=== PATIENT | female | born 1965 | race Caucasian/White ===

== ENCOUNTER 2024-04-15 17:06 | Inpatient (IN) | payer MEDICARE, OTHER ==
[~2024-04-15] VITALS: Ht 157.5 cm; Wt 86.0 kg
[2024-04-15 18:09] LABS: DIFFERENTIAL COMMENT 0; EOSINOPHILS % 1.4 % (0.0-5.0); HEMOGLOBIN. 8.7 g/dL (12.0-16.0); LYMPHOCYTES % 14.1 % (20.0-50.0); MEAN CORPUSCULAR HGB CONC 33.6 g/dL (31.0-37.0); MEAN CORPUSCULAR VOLUME 104.1 fL (81.0-99.0); MEAN PLATELET VOLUME 8.4 fl (7.4-10.4); MONOCYTES % 10.3 % (2.0-8.0); NEUTROPHILS % 73.2 % (40.0-76.0); PLATELET 148 x1000/uL (130-400); RED CELL DISTRIBUTION WIDTH 17.3 % (11.6-14.6); WHITE BLOOD COUNT 6.2 x1000/uL (4.5-11.0)
[2024-04-15 18:17] LABS: INR 1.3; PARTIAL THROMBOPLASTIN TIME 28.4 sec (23.4-31.0)
[2024-04-15 18:40] LABS: CHLORIDE 106 mEq/L (98-107); POTASSIUM 3.9 mEq/L (3.5-5.1); SODIUM 136 mEq/L (136-145)
[2024-04-15 18:41] LABS: CARBON DIOXIDE 23 mEq/L (21-32)
[2024-04-15 18:46] LABS: CREATININE 0.9 mg/dL (0.6-1.0); GLUCOSE 164 mg/dL (70-105); UREA NITROGEN BLOOD 16 mg/dL (9-23)
[2024-04-15 18:48] LABS: ALANINE AMINOTRANSFERASE 30 IU/L (10-49); ALBUMIN 2.6 g/dL (3.2-4.8); ASPARTATE AMINOTRANSFERASE 80 IU/L (<34); BILIRUBIN DIRECT 0.7 mg/dL (<=3.0); BILIRUBIN TOTAL 1.9 mg/dL (0.1-1.0); PROTEIN TOTAL 7.2 g/dL (6.0-8.3)
[2024-04-15 19:06] LABS: TROPONIN I HIGH SENSITIVITY 108 ng/L (3.0-34)
[2024-04-15 19:07] LABS: ETHANOL BLOOD < 10 mg/dL (<10)
[2024-04-15 19:08] LABS: AMMONIA 196 uMol/L (<32)
[2024-04-15] MEDS: LACTULOSE 20G/30ML UDC PO ONE (19:38)
[2024-04-15 19:59] LABS: VITAMIN B12 SERUM 1493 pg/mL (211-911)
[2024-04-15] MEDS: IOHEXOL-350 100 ML BOTTLE ONE (20:19)
[2024-04-15] MEDS ORDERED: DEXTROSE 50% WATER 50ML SYRINGE IV PRN (22:15)
[2024-04-15] MEDS ORDERED: IPRATROPIUM/ALBUTEROL 0.5-3(2.5)MG/3ML NEB HHN PRN (22:15)
[2024-04-15] MEDS: ASPIRIN 81MG TABLET PO ONE (22:42)
[2024-04-15] MEDS: LACTULOSE 20G/30ML UDC PO SCH (22:44)
[2024-04-15 23:47] LABS: IRON 126 ug/dL (50-170)
[2024-04-15 23:48] LABS: LACTIC ACID 2.8 mmol/L (0.4-2.0)
[2024-04-15 23:49] LABS: LACTATE DEHYDROGENASE 399 IU/L (120-246)
[2024-04-15 23:50] LABS: PHOSPHORUS 2.1 mg/dL (2.5-4.9); TOTAL IRON BINDING CAPACITY 290 ug/dl (250-425)
[2024-04-15 23:55] LABS: FERRITIN 42 ng/mL (10-291); FOLIC ACID (FOLATE) SERUM 12.96 ng/mL (>5.38)
[2024-04-16 00:04] LABS: VITAMIN B12 SERUM > 2000 pg/mL (211-911)
[2024-04-16 00:15] LABS: AMMONIA 146 uMol/L (<32)
[2024-04-16 00:35] LABS: ALANINE AMINOTRANSFERASE 34 IU/L (10-49); ASPARTATE AMINOTRANSFERASE 86 IU/L (<34); BILIRUBIN DIRECT 0.7 mg/dL (<=3.0)
[2024-04-16] MEDS: FUROSEMIDE 40MG TABLET PO SCH (02:03)
[2024-04-16] MEDS: SPIRONOLACTONE 50MG TABLET PO SCH (02:04)
[2024-04-16] MEDS: ACETAMINOPHEN 325MG TABLET PO PRN (03:08)
[2024-04-16] MEDS: LACTULOSE ENEMA 1,000ML BOTTLE PR NR (05:52)
[2024-04-16 06:22] LABS: CHLORIDE 109 mEq/L (98-107); POTASSIUM 3.6 mEq/L (3.5-5.1); SODIUM 138 mEq/L (136-145)
[2024-04-16 06:23] LABS: CALCIUM 8.2 mg/dL (8.7-10.4); CARBON DIOXIDE 21 mEq/L (21-32)
[2024-04-16 06:28] LABS: CREATINE KINASE MB FRACTION 3.3 ng/mL (0.5-3.6); CREATININE 0.9 mg/dL (0.6-1.0); GLUCOSE 128 mg/dL (70-105); TRIGLYCERIDE 154 mg/dL (0-150); UREA NITROGEN BLOOD 14 mg/dL (9-23)
[2024-04-16 06:29] LABS: LDL CHOLESTEROL 140 mg/dL (5-100)
[2024-04-16 06:30] LABS: ALBUMIN 2.7 g/dL (3.2-4.8); CHOLESTEROL 242 mg/dL (<200); HDL CHOLESTEROL 31 mg/dL (>65)
[2024-04-16 06:31] LABS: THYROID STIMULATING HORMONE 38.11 uIU/mL (0.55-4.78)
[2024-04-16 06:34] LABS: BASOPHILS % 1.1 % (0.0-2.0); DIFFERENTIAL COMMENT 0; EOSINOPHILS % 3.1 % (0.0-5.0); LYMPHOCYTES % 21.7 % (20.0-50.0); MEAN CORPUSCULAR HEMOGLOBIN 34.9 pg (28.0-32.0); MEAN CORPUSCULAR HGB CONC 33.4 g/dL (31.0-37.0); MEAN CORPUSCULAR VOLUME 104.5 fL (81.0-99.0); MEAN PLATELET VOLUME 8.7 fl (7.4-10.4); MONOCYTES % 11.8 % (2.0-8.0); NEUTROPHILS % 62.3 % (40.0-76.0); PLATELET 159 x1000/uL (130-400); RED BLOOD CELL COUNT 2.59 mill/uL (4.2-5.4); RED CELL DISTRIBUTION WIDTH 17.3 % (11.6-14.6); WHITE BLOOD COUNT 7.4 x1000/uL (4.5-11.0)
[2024-04-16 06:48] LABS: T4 FREE < 0.10 ng/dL (0.89-1.76)
[2024-04-16] MEDS: INSULIN LISPRO 100 UNITS/ML SUBCUT SCH (07:15)
[2024-04-16] MEDS: BLOOD SUGAR DIAGNOSTIC STRIP TEST SCH (07:35)
[2024-04-16] MEDS ORDERED: RIFAXIMIN 200MG TABLET PO SCH (09:00)
[2024-04-16] MEDS: PIPERACILLIN/TAZO 3.375G/50ML 50 ML IV SCH (09:15)
[2024-04-16] MEDS: PANTOPRAZOLE SODIUM 40 MG/VIAL IV SCH (09:15)
[2024-04-16] MEDS: ASPIRIN 81MG EC TABLET PO SCH (09:15)
[2024-04-16] MEDS: RIFAXIMIN 550 MG TABLET PO SCH (09:36)
[2024-04-16 14:00] VITALS: BP 115/73; PULSE 79; RESP 15; O2SAT 100
[2024-04-16 14:14] VITALS: BP 107/70; PULSE 82; RESP 16; TEMP 36.5292
[2024-04-16 16:00] VITALS: BP 110/73; PULSE 78; RESP 13; TEMP 36.78072; O2SAT 99
[2024-04-16 16:01] LABS: CREATINE KINASE MB FRACTION 3.6 ng/mL (0.5-3.6)
[2024-04-16] MEDS: AZITHROMYCIN 500 MG TABLET PO SCH (16:27)
[2024-04-16] MEDS: PIPERACILLIN/TAZO 3.375G/50ML IV SCH (16:28)
[2024-04-16 18:00] VITALS: BP 116/74; PULSE 80; RESP 17; O2SAT 97
[2024-04-16 18:25] LABS: HEPATITIS B SURFACE ANTIGEN NEGATIVE (Negative)
[2024-04-16 18:47] LABS: HEPATITIS C AB NON REACTIVE (Neg) (Negative)
[2024-04-16 20:00] VITALS: PULSE 81; RESP 14; TEMP 36.55848; O2SAT 97
[2024-04-16 22:00] VITALS: PULSE 83; RESP 16; O2SAT 97
[2024-04-17] VITALS (14 sets, daily range): BP systolic 69–111; BP diastolic 41–66; PULSE 69–83; RESP 12–23; TEMP 36.78072–37.39188; O2SAT 91–96
[2024-04-17 05:32] LABS: HEMATOCRIT 24.5 % (36.0-48.0); HEMOGLOBIN 8.2 g/dL (12.0-16.0); MEAN CORPUSCULAR HEMOGLOBIN 34.9 pg (28.0-32.0); MEAN CORPUSCULAR HGB CONC 33.3 g/dL (31.0-37.0); MEAN CORPUSCULAR VOLUME 104.8 fL (81.0-99.0); PLATELET 120 x1000/uL (130-400); RED BLOOD CELL COUNT 2.34 mill/uL (4.2-5.4); RED CELL DISTRIBUTION WIDTH 17.1 % (11.6-14.6); WHITE BLOOD COUNT 6.4 x1000/uL (4.5-11.0)
[2024-04-17 05:45] LABS: AMMONIA 120 uMol/L (<32)
[2024-04-17 05:46] LABS: CALCIUM 8.2 mg/dL (8.7-10.4); INR 1.4
[2024-04-17] MEDS: FUROSEMIDE 40MG TABLET PO SCH (08:50)
[2024-04-17] MEDS ORDERED: MINERAL OIL ENEMA 133ML PR PRN (09:00)
[2024-04-17] MEDS ORDERED: LIDOCAINE HCL 1% 10 MG/ML 10ML VIAL ONE (09:29)
[2024-04-17] MEDS ORDERED: SODIUM BICARBONATE 4% 2.4MEQ/5ML VIAL IV ONE (09:29)
[2024-04-17 09:33] LABS: POTASSIUM 3.3 mEq/L (3.5-5.1)
[2024-04-17] MEDS ORDERED: FUROSEMIDE 40MG TABLET PO SCH (21:00)
[2024-04-17] MEDS: SPIRONOLACTONE 50MG TABLET PO SCH (21:32)
[2024-04-17] MEDS: DOCUSATE SODIUM 100MG CAPSULE PO PRN (21:44)
[2024-04-18] VITALS (13 sets, daily range): BP systolic 86–142; BP diastolic 49–90; PULSE 67–77; RESP 11–21; TEMP 36.55848–37.61412; O2SAT 88–95
[2024-04-18] MEDS: POTASSIUM-SODIUM PHOSPHATE POWDER PACKET PO NR (08:49)
[2024-04-18 10:06] LABS: DIFFERENTIAL COMMENT 0; EOSINOPHILS % 5.9 % (0.0-5.0); HEMATOCRIT. 23.6 % (36.0-48.0); HEMOGLOBIN. 8.1 g/dL (12.0-16.0); LYMPHOCYTES % 32.2 % (20.0-50.0); MEAN CORPUSCULAR HEMOGLOBIN 35.5 pg (28.0-32.0); MEAN CORPUSCULAR HGB CONC 34.2 g/dL (31.0-37.0); MEAN CORPUSCULAR VOLUME 103.9 fL (81.0-99.0); MEAN PLATELET VOLUME 8.8 fl (7.4-10.4); MONOCYTES % 10.9 % (2.0-8.0); PLATELET 126 x1000/uL (130-400); RED BLOOD CELL COUNT 2.27 mill/uL (4.2-5.4); RED CELL DISTRIBUTION WIDTH 17.1 % (11.6-14.6); WHITE BLOOD COUNT 5.2 x1000/uL (4.5-11.0)
[2024-04-18 10:43] LABS: CHLORIDE 107 mEq/L (98-107); POTASSIUM 3.7 mEq/L (3.5-5.1); SODIUM 136 mEq/L (136-145)
[2024-04-18 10:44] LABS: CALCIUM 7.8 mg/dL (8.7-10.4); CARBON DIOXIDE 25 mEq/L (21-32)
[2024-04-18 10:49] LABS: CREATININE 1.1 mg/dL (0.6-1.0); GLUCOSE 109 mg/dL (70-105); UREA NITROGEN BLOOD 14 mg/dL (9-23)
[2024-04-18 10:51] LABS: ALANINE AMINOTRANSFERASE 29 IU/L (10-49); ALBUMIN 2.3 g/dL (3.2-4.8); ASPARTATE AMINOTRANSFERASE 73 IU/L (<34); BILIRUBIN DIRECT 0.5 mg/dL (<=3.0); PHOSPHORUS 2.9 mg/dL (2.5-4.9)
[2024-04-18 10:52] LABS: BILIRUBIN TOTAL 1.3 mg/dL (0.1-1.0); PROTEIN TOTAL 6.5 g/dL (6.0-8.3)
[2024-04-18] MEDS: LEVOTHYROXINE SODIUM 100MCG TABLET PO SCH (14:00)
[2024-04-18] MEDS: ALBUMIN HUMAN 25GM/100ML (25%) IV NR (14:31)
[2024-04-18] MEDS: LACTULOSE 20G/30ML UDC PO SCH (14:31)
[2024-04-18 17:29] LABS: AMMONIA 124 uMol/L (<32)
[2024-04-18 23:02] LABS: CLARITY URINE CLEAR (CLEAR); COLOR URINE YELLOW (YELLOW); GLUCOSE URINE NEGATIVE (NEGATIVE); KETONES URINE NEGATIVE (NEGATIVE); LEUKOCYTE ESTERASE URINE NEGATIVE (NEGATIVE); NITRITE URINE POSITIVE (NEGATIVE); OCCULT BLOOD URINE NEGATIVE (NEGATIVE); PROTEIN URINE NEGATIVE (NEGATIVE); SPECIFIC GRAVITY URINE 1.013 (1.005-1.030)
[2024-04-18 23:18] LABS: *AMPHETAMINES SCREEN URINE NEGATIVE (NEGATIVE); *BARBITURATES SCREEN URINE NEGATIVE (NEGATIVE); *BENZODIAZEPINES SCREEN URINE NEGATIVE (NEGATIVE); *COCAINE SCREEN URINE NEGATIVE (NEGATIVE); CANNABINOID URINE SCREEN NEGATIVE (NEGATIVE); ECSTASY MDMA SCREEN URINE NEGATIVE (NEGATIVE); METHADONE URINE SCREEN NEGATIVE (NEGATIVE); OPIATES URINE SCREEN NEGATIVE (NEGATIVE); PHENCYCLIDINE URINE SCREEN NEGATIVE (NEGATIVE)
[2024-04-18 23:19] LABS: BACTERIA URINE TRACE; RBC URINE 0-2 /hpf (0-2); SQUAMOUS EPITHELIAL CELL URINE FEW /lpf (RARE/1+); WBC URINE NONE SEEN /hpf (0-2); YEAST URINE 1+
[2024-04-19] VITALS (13 sets, daily range): BP systolic 117–150; BP diastolic 59–72; PULSE 66–83; RESP 11–21; TEMP 36.6696–37.28076; O2SAT 94–98
[2024-04-19 05:56] LABS: AMMONIA 106 uMol/L (<32)
[2024-04-19 06:35] LABS: BASOPHILS % 2.6 % (0.0-2.0); DIFFERENTIAL COMMENT 0; EOSINOPHILS % 7.4 % (0.0-5.0); HEMATOCRIT. 25.1 % (36.0-48.0); HEMOGLOBIN. 8.4 g/dL (12.0-16.0); LYMPHOCYTES % 26.7 % (20.0-50.0); MEAN CORPUSCULAR HEMOGLOBIN 35.3 pg (28.0-32.0); MEAN CORPUSCULAR HGB CONC 33.7 g/dL (31.0-37.0); MEAN CORPUSCULAR VOLUME 104.9 fL (81.0-99.0); MEAN PLATELET VOLUME 9.3 fl (7.4-10.4); MONOCYTES % 12.2 % (2.0-8.0); NEUTROPHILS % 51.1 % (40.0-76.0); PLATELET 120 x1000/uL (130-400); RED BLOOD CELL COUNT 2.39 mill/uL (4.2-5.4); RED CELL DISTRIBUTION WIDTH 17.1 % (11.6-14.6); WHITE BLOOD COUNT 5.6 x1000/uL (4.5-11.0)
[2024-04-19 06:39] LABS: CHLORIDE 105 mEq/L (98-107); POTASSIUM 4.1 mEq/L (3.5-5.1); SODIUM 135 mEq/L (136-145)
[2024-04-19 06:43] LABS: CALCIUM 8.5 mg/dL (8.7-10.4); CARBON DIOXIDE 22 mEq/L (21-32)
[2024-04-19 06:48] LABS: ALANINE AMINOTRANSFERASE 26 IU/L (10-49); GLUCOSE 113 mg/dL (70-105)
[2024-04-19 06:49] LABS: UREA NITROGEN BLOOD 12 mg/dL (9-23)
[2024-04-19 06:50] LABS: ALBUMIN 2.6 g/dL (3.2-4.8); ASPARTATE AMINOTRANSFERASE 69 IU/L (<34)
[2024-04-19 06:51] LABS: BILIRUBIN DIRECT 0.5 mg/dL (<=3.0); BILIRUBIN TOTAL 1.4 mg/dL (0.1-1.0); PROTEIN TOTAL 6.6 g/dL (6.0-8.3)
[2024-04-19] MEDS: FAMOTIDINE 20MG/2ML VIAL IV SCH (08:32)
[2024-04-19] MEDS: TRAMADOL 50MG TABLET PO PRN (13:43)
[2024-04-19] MEDS ORDERED: NALOXONE HCL 0.4MG/ML VIAL IV PRN (14:15)
[2024-04-19] MEDS: DOCUSATE SODIUM 100MG CAPSULE PO NR (16:16)
[2024-04-19] MEDS: BISACODYL 10MG SUPP PR NR (16:16)
[2024-04-19] MEDS ORDERED: LACT10SO3 MT (16:20)
[2024-04-19] MEDS ORDERED: AMOX1TAB15 MT (16:20)
[2024-04-19] MEDS ORDERED: FLUC100T42 MT (16:20)
[2024-04-19] MEDS ORDERED: DOCU-150 MT (16:20)
[2024-04-19] MEDS ORDERED: FURO40TA5 MT (16:20)
[2024-04-19] MEDS ORDERED: RIFA550T MT (16:20)
[2024-04-19] MEDS ORDERED: NA PHOS,M-B/NA PHOS,DI-BA ENEMA 118ML PR SCH (20:00)
[2024-04-20] MEDS ORDERED: BISACODYL 10MG SUPP PR SCH (08:00)
== END 2024-04-19 23:44 | disposition home health service (06) | DRG 871 ==
LOC: ER 17:06 → 5WST 19:53 → EDBEDREQ 04-16 00:20 → 5EST 04-16 12:45
PROVIDERS: ADMIT Internal Medicine; ATTEND Internal Medicine
PROC: 0W9G3ZZ Drainage of Peritoneal Cavity, Percutaneous Approach (ICD-10-PCS; principal; 2024-04-17)
DX: A41.9 Sepsis, unspecified organism (principal); I21.A1 Myocardial infarction type 2; J18.9 Pneumonia, unspecified organism; M62.82 Rhabdomyolysis; E87.20 Acidosis, unspecified; R18.8 Other ascites; E72.20 Disorder of urea cycle metabolism, unspecified; D50.9 Iron deficiency anemia, unspecified; D53.9 Nutritional anemia, unspecified; K74.60 Unspecified cirrhosis of liver; K76.82 Hepatic encephalopathy; R29.704 NIHSS score 4; K59.00 Constipation, unspecified; R29.810 Facial weakness; I11.0 Hypertensive heart disease with heart failure; I50.9 Heart failure, unspecified; K63.89 Other specified diseases of intestine; E11.9 Type 2 diabetes mellitus without complications; E03.8 Other specified hypothyroidism; E80.6 Other disorders of bilirubin metabolism; E78.5 Hyperlipidemia, unspecified; K75.81 Nonalcoholic steatohepatitis (NASH); I25.2 Old myocardial infarction; Z79.4 Long term (current) use of insulin; Z90.49 Acquired absence of other specified parts of digestive tract; Z85.3 Personal history of malignant neoplasm of breast; Z79.899 Other long term (current) drug therapy; Z79.82 Long term (current) use of aspirin
CPT/HCPCS: 36415; 49083; 70496; 70498; 71045; 74176; 76705; 80048; 80061; 80076; 80305; 80320; 81003; 82040; 82105; 82140; 82306; 82550; 82553; 82607; 82728; 82746; 82962; 83036; 83540; 83550; 83605; 83615; 83735; 83880; 84100; 84145; 84439; 84443; 84481; 84484; 85025; 85027; 85044; 86705; 86850; 86900; 87340; 93005; 93923; 93970; 99291; J1815; J2470; J2543; J3490; P9047; Q9967; G0480